=== PATIENT | male | born 1960 | race Caucasian/White ===

== ENCOUNTER 2016-11-10 11:43 | Emergency (ER) | payer OTHER ==
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
[~2016-11-10 11:43] MED LIST: ACETAMINOPHEN PO; AL-MAG HYDROX-S30 M1 PO; ARISTOCORT A 0.15 GM TOP; ATARAX PO; ATIVAN PO; BENTYL10 MG PO; CENTRUM SILVER PO; FOLIC ACID1 MG PO; IMODIUM2 MG PO; K-DUR20 ME1 PO; NORCO 10-325 TA1 TAB PO; PHENERGAN SUPP25 MG PR; PHENERGAN25 MG PO; PHENERGAN25 MG/1 ML IM; THIAMINE HCL100 MG PO; XARELTO10 MG PO; ZYPREXA7.5 MG PO
[2016-11-10 13:34] LABS: URINE SOURCE CLEAN CATCH
[2016-11-10 13:48] LABS: URINE APPEARANCE CLEAR; URINE BILIRUBIN NEG (NEG); URINE BLOOD NEG (NEG); URINE COLOR YELLOW; URINE GLUCOSE NEG (NEG); URINE KETONE NEG (NEG); URINE LEUKOCYTE ESTERASE NEG (NEG); URINE NITRATE NEG (NEG); URINE PROTEIN 1+ (NEG); URINE SPECIFIC GRAVITY 1.014 (1.003-1.035); URINE UROBILINOGEN 0.2 MG/DL (NEG)
[2016-11-10 13:49] LABS: URBCS1 AUWI 0-2 /[HPF] (0-2); URINE BACTERIA AUWI NEG (NEGATIVE); URINE SQUAMOUS EPITHELIAL CELL NONE SEEN /[HPF]; UWBCS1 AUWI 0-2 (0-5)
[2016-11-10 13:50] LABS: BASOPHIL# 0.1 X10e3 (0-0.3); BASOPHIL% 0.6 % (0-2.5); EOSINOPHIL# 0.2 X10e3 (0-0.7); EOSINOPHIL% 1.8 % (0.0-7.0); HEMATOCRIT 47.4 % (38.0-50.0); LYMPHOCYTE# 2.1 X10e3 (1.0-3.5); LYMPHOCYTE% 16.6 % (17.0-45.0); MEAN CELL VOLUME 98.8 FL (83-96); MEAN CORPUSCULAR HEMOGLOBIN 33.3 PG (28-34); MEAN CORPUSCULAR HGB CONC 33.7 g/dL (30-36); MEAN PLATELET VOLUME 7.8 FL (6.5-11.5); MONOCYTE# 0.7 X10e3 (0-1.0); MONOCYTE% 5.4 % (3.0-12.0); NEUTROPHIL# 9.5 X10e3 (1.5-7.1); NEUTROPHIL% 75.6 % (40-75); PLATELET COUNT 241 X10e3 (140-420); RED CELL DISTRIBUTION WIDTH 13.8 % (11.0-15.5); WHITE BLOOD COUNT 12.6 X10e3 (4.0-10.5)
[2016-11-10 13:53] LABS: DIFF IND NO
[2016-11-10 13:59] LABS: CULTURE INDICATED? NO
== END 2016-11-10 14:41 | disposition home or self-care (01) ==
LOC: CFTX 11:43
PROVIDERS: Nurse Practitioner Family
DX: S73.101A Unspecified sprain of right hip, initial encounter (principal); F17.210 Nicotine dependence, cigarettes, uncomplicated; X58.XXXA Exposure to other specified factors, initial encounter; Y92.9 Unspecified place or not applicable
CPT/HCPCS: 36415; 73502; 81003; 85025; 99283

== ENCOUNTER 2017-04-01 09:42 | Inpatient (IN) | payer OTHER ==
[~2017-04-01] VITALS: Ht 177.8 cm; Wt 60.6 kg
--- NOTE | ~2017-04-01 | CO ---
Unit #: [id number] #: [id number] Patient: BENNY FARIA [id number] [address] [place], [place] [address] [id number] Renuka MR#: [id number] NAME: BENNY FARIA ROOM: 324 Age: 56 Sex: M Admission Date: 04/01/2017 : 1960 Attending Physician: Nallely Prieto M.D. Primary Care Physician: No Primary Care Physician Consultation Date: 04/01/2017 CONSULTATION REPORT REASON FOR CONSULT Acidosis. Thank you very much for having me see this patient in consultation. HISTORY OF PRESENT ILLNESS Mr. Faria is a 56-year-old, male who apparently lives alone who has a history of ETOH abuse with cirrhosis and hepatitis, although apparently has not had any alcohol in 2 years. He presented to the hospital with decreased mental status and apparently about an 80-pound weight loss. Was admitted and noted to have a bicarb of 10 in the serum with an anion gap of 24 with creatinine 1.1. Because of this, I was asked to see the patient. Patient apparently had a methanol and ethylene glycol level sent to [facility], but they accidentally ran an acetone level, which came back at 85 according to the lab, although the methanol level was negative and, after approximately 20 minutes of trying to get a hold of and talk to them in the lab at [facility], they finally instructed me that the ethylene glycol machine was broken and probably would not be fixed tonight. Because of his severe acidosis, I was asked to see the patient. Patient currently is alert, but confused. PAST MEDICAL HISTORY History of schizophrenia, history of cirrhosis, history of hepatitis C, history of ETOH abuse and none in questionable two years, history of anxiety, history of depression. Apparently, he was in the hospital two months ago with sepsis and pneumonia at [place]. SOCIAL HISTORY Apparently, no alcohol x2 years. Lives along. Positive smoker. ALLERGIES No known drug allergies. MEDICATIONS Medicines at home included: 1. Eyedrops. 2. Pravachol 20 mg at night. 3. Melatonin 3 mg at night. 4. Sertraline 20 mg at night. 5. Quetiapine fumarate 200 mg at night. 6. SEROquel 400 mg at night. REVIEW OF SYSTEMS Again, he was talking about being bitten by a snake two days ago and Unit #: [id number] #: [id number] Patient: BENNY FARIA things over in the room so really cannot get a good review of systems from him. He currently denies any chest pain, shortness of breath, nausea, or vomiting. He denies any type of ingestions of any antifreeze or rubbing alcohol or any type of alcohols. FAMILY HISTORY Unable to obtain. PHYSICAL EXAMINATION GENERAL: He is alert, but confused. HEENT: His pupils are equal, round, and reactive to light. Extraocular muscles are intact. Hearing appears to be normal. Mouth is dry. No erythema. No exudate. NECK: Supple. No adenopathy. CARDIAC: He does have a regular rhythm without a rub. No S3 or S4. LUNGS: His lungs are fairly clear bilaterally, although he does have some decreased breath sounds at the bases. ABDOMEN: Bowel sounds positive. Nontender and soft. EXTREMITIES: He has no lower extremity swelling. His pulses are intact in the lower extremities. JOINTS: No joint pain or joint swelling. SKIN: No acute rashes. NEURO: Again, able to move all extremities. He is alert, but confused. : Chiu catheter is now in place. DIAGNOSTIC STUDIES LABORATORY DATE: Initially, he had a sodium of 137, potassium 3, chloride is 103, bicarb is 10, BUN of 8, creatinine 1.1, glucose 71, and anion gap was 24. Hemoglobin is 12.7, white count 7,900, and platelets 298,000. INR is 1.6. UA shows specific gravity of 1.02, 1+ protein, 3+ ketones, 2-5 RBCs, and 1+ bacteria. Serum osmolarity was 312. His repeat labs showed a BUN and creatinine of 9 and 1, bicarb of 11, potassium was down to 2.7, and albumin was 4.2. CPK of 52. Ammonia level 64. TSH is 0.18. Clarinda level was 0.4. Lactic acid was 0.8. Tylenol level was negative. Aspirin level negative. Ethanol level was negative. His ABG showed pH of 7.208, pCO2 of 24, and pO2 questionable 43 venous gas, but he saturates to 100% apparently. IMAGING: CT scan of his head was negative. ASSESSMENT AND PLAN 1. Acidosis. This is a gentleman who has an elevated metabolic acidosis certainly with increased anion gap and certainly lactic level was negative. I do not have a serum ketone level. He does have urine ketones that are positive. He is not uremic. The real question is did he have ingestions of any types of alcohols. He has a calculated osmolar gap of 26 as well. His acetone level is 85 suggesting an isopropyl alcohol ingestion although that typically does not cause an elevated anion gap metabolic acidosis, but it can cause an elevated osmolar gap. Theoretically, he could have starvation ketosis as well with an elevated anion gap acidosis and isopropyl alcohol ingestion with an elevated osmolar gap; but, again, I do not have an ethylene glycol level and apparently I cannot get any in the near future. He does have normal renal function and he is urinating so we will keep him on his bicarb drip and will treat him for now only on fomepizole and will try to get levels once the machine gets fixed at [facility]. Continue bicarb drip. Will continue to follow. Check serum ketones. 2. Severe hypokalemia. Will replace with protocols. Unit #: [id number] #: [id number] Patient: BENNY FARIA 3. Possible urinary tract infection. Will start on Rocephin. 4. History of cirrhosis/hepatitis C with elevated ammonia. Dictated by.Orlando Messer M.D. ALIZA/mary TD: 04/02/2017 09:43 JOB #: [id number] CONSULTATION REPORT Page 1 of 1 X Nallely Messer MD X CONSULTATION REPORT
--- NOTE | ~2017-04-01 | HP ---
Unit #: [id number] #: [id number] Patient: BENNY FARIA [id number] [facility]. [place], [place] [address] [id number] MR#: [id number] NAME: BENNY FARIA ROOM: Age: 56 Sex: M Admission Date: 04/01/2017 : 1960 Attending Physician: Isidro Rodriguez M.D. Primary Care Physician: No Primary Care Physician HISTORY AND PHYSICAL CHIEF COMPLAINT Weakness. HPI The patient is a 56-year-old male with past medical history of schizophrenia, anxiety, depression, hypothyroidism, and alcohol abuse who presented to the emergency department for evaluation of the above. The patient is a poor historian. He has had increasing generalized weakness and weight loss. He has reportedly had about an 80-pound weight loss since August. He has had decreased p.o. intake. He denies any vomiting or diarrhea. No cough or cold symptoms. In the emergency department, initial pulse and blood pressure were 86 and 139/83, respectively. Laboratory notable for ammonia level of 64. He was given 45 mL of lactulose in the emergency department. Potassium was also low and he received 40 mEq of potassium as well as 4 mg of Zofran and 1 liter of normal saline. He is being admitted to [facility] for evaluation and further treatment. PAST MEDICAL HISTORY 1. Admission to [facility] within the past year (no records). 2. Admission to [facility] February 21, 2012, for a left hip fracture. He underwent nailing during that admission. 3. Schizophrenia. 4. Anxiety/depression. 5. Hypothyroidism. PAST SURGICAL HISTORY Left hip surgery. SOCIAL HISTORY The patient has a history of alcohol abuse. He tells me that his last drink was two years ago. He is a smoker. ALLERGIES No known allergies. HOME MEDICATIONS 1. Olanzapine 10 mg at bedtime. 2. Vitamin D3 1000 units daily. 3. Artane 1 mg twice daily p.r.n. 4. [facility] 300 mg twice daily. 5. Levothyroxine 100 mcg daily. Unit #: [id number] #: [id number] Patient: BENNY FARIA 6. SEROquel 600 mg at bedtime. 7. Sertraline 200 mg at bedtime p.r.n. 8. Melatonin 3 mg at bedtime. 9. Pravachol 20 mg at bedtime. 10. Fidelity 3 1200 mg daily. 11. Ketoralac eyedrops 4 times daily p.r.n. REVIEW OF SYSTEMS A complete review of systems is somewhat limited due to the patient's altered mental status, but negative, except as indicated in the HPI. DIAGNOSTIC STUDIES CARDIOVASCULAR: EKG shows normal sinus rhythm with a rate of 74 beats per minute. There is T wave inversion in leads V2 through V6. IMAGING: Chest x-ray shows no acute abnormality. CT of the head shows nothing acute. LABORATORY: Complete blood count notable for hemoglobin and hematocrit of 12.7 and 39.3, respectively. Troponin is less than 0.05. INR is 1.6. Comprehensive metabolic panel notable for potassium of 3, CO2 is 10 with an anion gap of 24. Ammonia level 64. PHYSICAL EXAMINATION VITAL SIGNS: Temperature 98.1, pulse 86, respirations 18, blood pressure 139/83, and oxygen saturation 100% on room air. GENERAL: The patient is a male who is awake and alert. Chronically ill appearing. HEENT: The head is atraumatic. Mucous membranes are dry. NECK: Supple. Trachea is midline. CARDIOVASCULAR: Regular rate and rhythm. LUNGS: Clear to auscultation bilaterally with no increased work of breathing. ABDOMEN: Soft and nontender with bowel sounds present in all four quadrants. EXTREMITIES: Nontender with no pedal edema. NEUROLOGIC: The patient is oriented to person only. He follows commands. He is moving all extremities. PSYCH: The patient has a flat affect. He is cooperative. SKIN: Skin of examined areas is warm and dry. ASSESSMENT The patient is a 56-year-old male with: 1. Generalized weakness. 2. Hepatic encephalopathy with an initial ammonia level of 64. 3. Hypokalemia. The patient received 40 mEq of potassium in the emergency department. 4. Anion gap metabolic acidosis with an anion gap of 24. 5. Weight loss, possibly 80 pounds since August. 6. Schizophrenia. 7. Anxiety/depression. 8. Hypothyroidism. 9. Alcohol abuse. The patient's last drink was reportedly two years ago. PLAN 1. Admit to intermediate level for observation. 2. Advance to regular diet if passes bedside swallow. Unit #: [id number] #: [id number] Patient: BENNY FARIA 3. Lactulose 30 mL p.o. q.4 hours. 4. Neuro checks. 5. Multivitamin, folic acid, and thiamine. 6. CIWA scoring. 7. Check magnesium level. 8. Potassium magnesium protocol. 9. TSH. 10. PT to evaluate and treat. 11. Bed rest. 12. Fall precautions. 13. Get records from [place]. 14. Serial cardiac enzymes. 15. Bicarb drip to start now. 16. Repeat BMP later this afternoon to follow up anion gap metabolic acidosis. 17. Check urinalysis and urine tox screen. 18. SCDs for DVT prophylaxis. 19. Additional workup and consultants based on above. Dictated by Tray Harris/mary TD: 04/01/2017 13:58 JOB #: [id number] HISTORY AND PHYSICAL Page 1 of 1 X Pallavi Matamoros MD X HISTORY AND PHYSICAL
--- NOTE | ~2017-04-01 | CO ---
Unit #: [id number] #: [id number] Patient: BENNY INFANTE [id number] [facility] [address] [facility]. [place], [place] [address] [id number] I MR#: [id number] NAME: BENNY INFANTE ROOM: 324 Age: 56 Sex: M Admission Date: 04/01/2017 : 1960 Attending Physician: Nallely Priteo M.D. Primary Care Physician: Primary Care Physician No Consultation Date: 04/09/2017 CONSULTATION REPORT REASON FOR CONSULTATION Followup. DISCUSSION Mr. Benny Infante is a 56-year-old male, seen in room 324, bed 1, on 04/09/2017 at [facility]. The patient was sitting in a chair, eating his lunch. The patient dressed in hospital attire, able to answer questions appropriately. More coherent and cooperative. No agitation, but mood lability. The patient denied any thoughts of harming self or others. Denied any hallucination, but somewhat guarded and paranoid. Reports that he would like to go home. The patient's vital signs; temperature 98.3, pulse 74, respirations 16, blood pressure 110/74, oxygen saturation 98%. REVIEW OF SYSTEMS Complete review of systems unremarkable. MENTAL STATUS EXAMINATION General appearance, the patient dressed casually in hospital attire. Attention span and concentration, fair. Speech, rapid in rate and somewhat pressured. Oriented in time, place, and person. Mood and affect, labile. Thought process, circumstantial. Thought content, guarded, paranoid, but denied any thoughts of harming self or others. Recent and remote memory, fair to slightly impaired. Language, intact. Fund of knowledge, fair. Insight and judgment, fair to slightly impaired. DIAGNOSIS Psychiatric: Schizophrenia, chronic paranoid type, F20.0. ASSESSMENT AND PLAN 1. Supportive psychotherapy and psychoeducation provided to the patient. 2. Educated about benefits and side effects of medication and course and prognosis of illness. 3. Advised to continue with current medication. If needed, consider further adjustment of medication. We will continue to follow. Please feel free to call if any questions, telephone #[phone]. Dictated by... Miguel Willett M.D. CARISA/gina TD: 04/13/2017 00:19 Unit #: [id number] #: [id number] Patient: BENNY INFANTE JOB #: [id number] CONSULTATION REPORT Page 1 of 1 X Miguel Willett MD CONSULTATION REPORT
--- NOTE | ~2017-04-01 | CO ---
Unit #: [id number] #: [id number] Patient: BENNY FARIA [id number] [facility] [address] [facility]. [place], [place] [address] [id number] I MR#: [id number] NAME: BENNY FARIA ROOM: 324 Age: 56 Sex: M Admission Date: 04/01/2017 : 1960 Attending Physician: Nallely Prieto M.D. Consultation Date: 04/07/2017 CONSULTATION REPORT REASON FOR CONSULTATION Followup. DISCUSSION Mr. Benny Faria is a 56-year-old white male seen in room 324, bed 1, on April 07, 2017, at [facility]. Patient was lying in bed dressed in hospital attire. He seemed somewhat anxious and wanted to go home and live in his apartment. Patient's brother and his day care aide was at the bedside. Patient's field nurse case manager is concerned that patient is not able to manage himself and needs a higher level of care. Patient has a good support system. He denied any thoughts of harming self or others but somewhat anxious. Patient was somewhat guarded and paranoid but denied any current auditory hallucinations. I noticed tardive dyskinesia symptoms. Patient's vital signs: Temperature 98.2, pulse 67, respirations 20, blood pressure 119/83, and oxygen saturation 100%. REVIEW OF SYSTEMS A complete review of systems is unremarkable except as mentioned above. MENTAL STATUS EXAMINATION General appearance: Patient is thin built and dressed in hospital attire. He seemed somewhat anxious, and I noticed abnormal movement of face. Attention span and concentration were poor. Speech was rapid in rate and difficult to understand at times. Oriented in time, place, and person. Mood and affect labile. Thought process circumstantial. Thought content guarded and paranoid but denied any suicidal or homicidal ideation. Recent and remote memory fair. Language intact. Fund of knowledge fair. Insight and judgment fair to slightly impaired. PSYCHIATRIC DIAGNOSIS Schizophrenia, chronic, paranoid type, F20.0. ASSESSMENT AND PLAN 1. Supportive psychotherapy and psychoeducation provided to the patient. 2. Educated about benefits and side effects of medication and course and prognosis of illness. 3. Encouraged to continue with current medication. Patient seems to be doing better on a lower dosage of Seroquel. We will closely monitor for any psychotic symptoms. Patient is currently on Seroquel XR 200 mg twice daily. Patient wants to live by himself supervised by day care aide. We will discuss with the day care aide and family service caseworker. In the meantime, continue with current medication and make further adjustment of medication if needed. Patient to continue with Artane, Zyprexa, and Seroquel. Please feel free to call with any questions Unit #: [id number] #: [id number] Patient: BENNY FARIA at telephone number [phone]. 1. Dictated by... Tray Adams/pete TD: 04/08/2017 17:09 JOB #: [id number] CONSULTATION REPORT Page 1 of 1 X Miguel Willett MD X CONSULTATION REPORT
--- NOTE | ~2017-04-01 | CT71 ---
[facility] A Service of [facility] RADIOLOGY TEXT RESULTS PATIENT: BENNY FARIA [facility] 324-01 : 58 UNIT #: [id number] AGE: [address]: Pallavi Matamoros MD SEX: M ORDER DR: [id number] [facility]. [place], [place] [address] [id number] E MR#: [id number] #: [id number] NAME: BENNY FARIA : 1960 SEX: M STUDY DATE/TIME: 04/01/2017 11:02 UNIT: [facility] ROOM: STUDY DESCRIPTION: CT Head Wo Contrast Attending Physician: Isidro Rodriguez M.D. Ordering Physician: Isidro Rodriguez M.D. Primary Care Physician: Primary Care Physician No MEDICAL IMAGING REPORT This report is preliminary unless electronic signature is present EXAM CT head without contrast. INDICATIONS Weakness, confusion for [address] images were obtained from vertex of the skull through skull base and intravenous contrast material was administered. This CT exam was performed with one or more of the following radiation dose reduction techniques: automatic exposure control, adjustment of mA and/or kV according to patient size, and iterative reconstruction. FINDINGS No acute intracranial hemorrhage is identified. Brain parenchyma is normal attenuation without focal areas of decreased in seen. There is no midline shift or mass effect. The visualized paranasal sinuses and mastoid air cells appear clear. No aggressive osseous abnormalities are seen and there are no focal soft tissue abnormalities. IMPRESSION Negative Dictated by... Annabella Gonzales M.D. THIS IS AN ELECTRONICALLY VERIFIED REPORT Annabella Gonzales M.D. at 04/01/2017 4:50 PM AFF/dj TD: 04/01/2017 12:58 JOB #: [id number] [facility] A Service [facility] RADIOLOGY TEXT RESULTS PATIENT: BENNY FARIA [facility] 324-01 : 58 UNIT #: [id number] AGE: [address]: Pallavi Matamoros MD SEX: M ORDER DR: MEDICAL IMAGING REPORT Page 1 of 1 COPY
--- NOTE | ~2017-04-01 | EKG ---
PATIENT: BENNY FARIA UNIT #: [id number] Ventricular Rate: 74 BPM Atrial Rate: 74 BPM P-R Interval: 152 ms QRS Duration: 84 ms Q-T Interval: 548 ms QTC Calculation(Bezet): 608 ms P [place]: 66 degrees Calculated R [place]: 48 degrees Calculated T [place]: 74 degrees Diagnosis Line: Normal sinus rhythm Diagnosis Line: ST and T wave abnormality, consider anterior Diagnosis Line: ischemia Diagnosis Line: Prolonged QT Diagnosis Line: Abnormal ECG Diagnosis Line: When compared with ECG of 08-JAN-2013 13:12, Diagnosis Line: ST now depressed in Anterior leads Diagnosis Line: Nonspecific T wave abnormality now evident in Diagnosis Line: Inferior leads Diagnosis Line: T wave inversion now evident in Anterior leads Diagnosis Line: QT has lengthened Diagnosis Line: Confirmed by CA BARRETO MD ([id number]) on 04/01/2017 Diagnosis Line: 7:45:34 PM INTERPRETING MD: ESTEVAN LARSON
--- NOTE | ~2017-04-01 | FU ---
[facility] Nutrition Therapy DATE: 04/06/17 Patient: BENNY FARIA Physician: ASHA Address: [address] [place] [address] Room/Bed: [address] [place] [address], Zip: [place] [address] Admit Date: 04/01/17 Date of : 58 Height: 5 10 Weight: 132 60.2 NUTRITION MONITORING/FOLLOW-UP: Reason: NUTRTION F/U FOR LOW BMI Anthropometrics: HT: 70", WT: 132#, BMI: 18.9 Labs: 04/06/17- GLU: 117, BUN: <5, CREA: 0.5, ALB: 3.3 Meds: LACTULOSE, SODIUM BICARB, SEROQUEL, MAG SULFATE, KCL, SYNTHROID, ZYPREXA, NACL, FOLIC ACID, FISH OIL, VIT D, MVI +MINS, THIAMIN I&O's: 1270/1700 Skin: INTACT Estimated Nutrition Needs: INCREASED 2' PATIENT UNDERWEIGHT, ~40# WEIGHT LOSS PER PATIENT Assessment: PATIENT IS A 56 Y/O MALE ADMITTED FOR WEAKNESS.HE IS BEING SEEN FOR HIS UNDERWEIGHT STATUS. PATIENT HAS BEEN NOTED TO HAVE CONFUSION, DISORIENTATION, PARANOIA, AND DELUSIONS. HE HAS A POOR MEMORY. UPON VISIT PATIENT WAS ALERT AND PLEASANT. HE WAS ABLE TO ANSWER QUESTIONS APPROPRIATELY, HOWEVER HE WAS MUMBLING NONSENSE AND WAS PREOCCUPIED WITH MAKING A PHONE CALL. WASN HE STATED THAT HIS UBW IS 170# BUT THAT HIS WEIGHT USUALLY FLUCTUATES D/T HIS MEDICATIONS. WEIGHT HX PER [facility] SHOWS A 30# WEIGHT LOSS SINCE OCTOBER (5 MONTHS). HE DENIES ANY N/V/D/C. THERE ARE NO SKIN OR GI ISSUES NOTED ATT. PATIENT IS ON A MECHANICAL GROUND DIET. PATIENT STATED HE COULD NOT TOLERATED ENSURE, BUT WAS WILLING TO TRY ENSURE CLEAR. Dx: UNDERWEIGHT R/T DECREASED PO INTAKE AND APPETITE, CURRENT DX, PMH? AEB LOW BMI, 77-80% IBW, ?~80# WEIGHT LOSS SINCE AUGUST 2016 - IMPROVING. WEIGHT LOSS ~30# X 5 MONTHS PER MEDITECH. Intervention: MECHANICAL GROUND DIET, RD CONSULT, SUPPLEMENTATION Monitoring, Evaluation and Goals: 1. ORAL INTAKE; CONSUME/TOLERATED >50% OF MEALS - ONGOING 2. WEIGHTS; PROMOTE GRADUAL WEIGHT GAIN TOWARDS HEALTHY BMI; PREVENT FURTHER UNINTENTIONAL WEIGHT LOSS - ONGOING. PATIENT'S WT SEEMS TO HAVE STABILIZED SINCE ADMIT 3. LABS; LYTES - IMPROVING - LYTES WNL, BUN AND CREA DECREASED MONITOR: PO INTAKE/APPETITE, WEIGHTS, LABS [facility] Nutrition Therapy DATE: 04/06/17 Patient: BENNY BLOODGOMERY Physician: ASHA Address: [address] [place] [address] Room/Bed: [address] [place] [address], Zip: [place] [address] Admit Date: 04/01/17 Date of : 58 Height: 5 10 Weight: 132 60.2 Recommendations: 1. WILL ORDER APPLE ENSURE CLEAR TID 2. CONTINUE MECHANICAL GROUND DIET PER GRINDING SUPERVISOR RECOMMENDATIONS 3. ENCOURAGE ADEQUATE PO AND FLUID INTAKES. PATIENT UNDERWEIGHT. POSSIBLY ADD AN APPETITE STIMULANT TO CURRENT MEDICATION REGIMEN 4. PLEASE WEIGH PATIENT Q 3 DAYS FOR MONITORING PURPOSES RD WILL F/U PER PROTOCOL AND PRN R/T PATIENT MILD/MODERATELY COMPROMISED Status: Respectfully, LUZ PENDLETON, RD, LD Food and Nutritional Services [facility] cc: client file
--- NOTE | ~2017-04-01 | A ---
[facility] Nutrition Therapy DATE: 04/02/17 Patient: BENNY FARIA Physician: ASHA Address: [address] Room/Bed: [address] [place] [address], Zip: [place] [address] Admit Date: 04/01/17 Date of : 58 Height: 5 10 Weight: 128 58.2 NUTRITIONAL ASSESSMENT: REASON: LOW BMI + CONSULT RE: WEIGHT LOSS PT IS 56 Y.O. MALE ADMITTED FOR WEAKNESS PMH: ANXIETY, DEPRESSION, SCHIZOPHRENIA, ETOH ABUSE, CIRRHOSIS, HEPATITIS, HYPOTHYROIDISM Anthropometrics: 5'10", WT: 128-133# (58 KG-60 KG), BMI: 18.4-19.1, 77%IBW-80%IBW Labs: K+:3.1, GLU: 113, BUN: 7, PHOS: 0.8 Meds: NACL, LIPITOR, KCL, LACTULOSE, FOLIC ACID, FISH OIL, VITAMIN D, THIAMINE, SYNTHROID, THERAPEUTIC FORMULA I/O & Bowel function: 1890/1100 Skin Integrity: NO KNOWN SKIN ISSUES Estimated Nutrition Needs: INCREASED NEEDS 2' PT UNDERWEIGHT, CURRENT CONDITION, WEIGHT LOSS NOTED? Assessment: CHART REVIEWED AND EVENTS NOTED. PT SEEN FOR UNDERWEIGHT + WEIGHT LOSS NOTED. PT ASLEEP AT TIME OF VISIT. BOTH RD AND MD ATTEMPTED TO WAKE PT AT SAME TIME. PT DID NOT WAKE TO VERBAL CUES. PER RN AND CHART, PT NOTED TO HAVE DECREASED PO INTAKE, NOTING ~80# WEIGHT LOSS SINCE AUGUST 2016?. OF NOTE, K+ AND PHOS LOW. RD TO FOLLOW ONCE PT AWAKE/ALERT/ORIENTED. Dx: UNDERWEIGHT R/T DECREASED PO INTAKE AND APPETITE, CURRENT DX, PMH? AEB LOW BMI OF 18.4-19.1, 77-80%IBW, ?~80# WEIGHT LOSS SINCE AUGUST 2016. Intervention: 1. MECHANICAL GROUND DIET 2. RD CONSULT Monitoring, Evaluation and Goals: 1. ORAL INTAKE; CONSUME/TOLERATE >50% OF MEALS 2. WEIGHTS; PROMOTE GRADUAL WEIGHT GAIN TOWARDS HEALTHY BMI; PREVENT FURTHER UNINTENTIONAL WEIGHT LOSS 3. LABS; LYTES MONITOR: -PO INTAKE/APPETITE -WEIGHTS [facility] Nutrition Therapy DATE: 04/02/17 Patient: BENNY FARIA Physician: ASHA Address: [address] Room/Bed: [address] [place] [address], Zip: [place] [address] Admit Date: 04/01/17 Date of : 58 Height: 5 10 Weight: 128 58.2 -LABS Recommendations: 1. PLEASE REPLETE LYTES PRN (K+ & PHOS LOW) 2. RECOMMEND TO ORDER APPROPRIATE SUPPLEMENTS (ENSURE CLEAR, ENSURE ENLIVE, ENSURE PUDDING, MAGIC CUP TID) FOR ADDITIONAL PROTEIN AND KCAL 3. APPRECIATE FAMILY AND STAFF TO ENCOURAGE ADEQUATE PO INTAKE, PT CLINICALLY UNDERWEIGHT 4. PLEASE WEIGH PT q 3 DAYS FOR MONITORING PURPOSES RD WILL F/U PER PROTOCOL PT IS MODERATELY COMPROMISED Respectfully, VENKAT MONTANA MS, RD, LD [facility] cc: client file
--- NOTE | ~2017-04-01 | CO ---
Unit #: [id number] #: [id number] Patient: BENNY INFANTE [id number] [address] [place], [place] [address] [id number] I MR#: [id number] NAME: BENNY INFANTE ROOM: 324 Age: 56 Sex: M Admission Date: 04/01/2017 : 1960 Attending Physician: Nallely Prieto M.D. Consultation Date: 04/05/2017 CONSULTATION REPORT REASON FOR CONSULTATION Followup. DISCUSSION Mr. Benny Infante is a 56-year-old white male, seen in room 324, bed 1 on 04/05/2017. The patient dressed casually in hospital attire, lying comfortably in bed. The patient was slow to respond to the questions, but coherent answers, somewhat guarded, paranoid, mood lability, but denied any thoughts of harming self or others. The patient's information obtained from the nursing staff and chart reviewed. Vital signs; temperature 99.3, pulse 83, respirations 16, blood pressure 114/72, and oxygen saturation 99%. REVIEW OF SYSTEMS A complete review of systems is unremarkable except as mentioned above. MENTAL STATUS EXAMINATION General appearance; the patient dressed in hospital attire, lying comfortably in bed. Attention span and concentration, poor. Speech, slow. Orientation in self. Mood and affect, flat. Thought process, circumstantial. Thought content; guarded and paranoid, but denied any thoughts of harming self or others. Recent and remote memory, poor. Language, fair. Fund of knowledge, impaired. Insight and judgment, impaired. DIAGNOSIS Psychiatric: Schizophrenia, chronic, paranoid type, F20.0. ASSESSMENT/PLAN 1. Supportive psychotherapy and psychoeducation provided to the patient. 2. Educated about benefits and side effects of medication and course and prognosis of illness. 3. Advised to continue with current medication combination, Seroquel XR 200 mg b.i.d. If needed, consider further adjustment of medication. Please feel free to call if any questions, telephone #[phone]. Dictated by... Miguel Willett M.D. CARISA/gina TD: 04/05/2017 18:03 JOB #: [id number] Unit #: [id number] #: [id number] Patient: BENNY INFANTE CONSULTATION REPORT Page 1 of 1 X Miguel Willett MD CONSULTATION REPORT
--- NOTE | ~2017-04-01 | CO ---
Unit #: [id number] #: [id number] Patient: BENNY FARIA 216102 [facility] [address] [facility]. [place], [place] [address] [id number] I MR#: [id number] NAME: BENNY FARIA ROOM: 324 Age: 56 Sex: M Admission Date: 04/01/2017 : 1960 Attending Physician: Nallely Prieto M.D. Primary Care Physician: Primary Care Physician No Consultation Date: 04/04/2017 CONSULTATION REPORT REASON FOR CONSULTATION Schizophrenia, disorganized behavior and thought process. HISTORY OF PRESENT ILLNESS Mr. Faria is a 56-year-old white male, seen in room 324, bed 1 on 04/04/2017 at [facility]. The patient is thin built, dressed casually, lying comfortably in bed. The patient was unable to give any coherent information, disorganized behavior, disorganized thought process, guarded, paranoid. The patient's vital signs; temperature 98.7, heart rate 87, respirations 16, blood kwegeidy914/79, and oxygen saturation 95%. The patient has a longstanding history of schizophrenia and currently on olanzapine, Artane, lithium, Seroquel, sertraline, melatonin. The patient did not show any agitation, poor historian. The patient's vital signs; temperature 98.5, heart rate 76, respirations 16, blood pressure 117/76, and oxygen saturation 99%. PAST PSYCHIATRIC HISTORY Remarkable for history of schizophrenia with multiple treatment at [facility] and outpatient treatment. MEDICAL HISTORY Remarkable for history of hypothyroidism, history of hepatitis C, cirrhosis of liver, history of sepsis and pneumonia treated at [place] recently. MEDICATION HISTORY The patient is on Pravachol, melatonin, sertraline, quetiapine. ALLERGIES No known drug allergies. FAMILY HISTORY AND SOCIAL HISTORY The patient has a poor support system. No history of abuse. No known history of any substance abuse known at this time. REVIEW OF SYSTEMS Complete review of system is unremarkable except as mentioned above. MENTAL STATUS EXAMINATION Vitals signs, please see above. General appearance; the patient dressed casually, lying comfortably in bed, confused, unable to give any reliable information. Attention span and concentration, poor. Speech, slow and disorganized. Orientation in self. Mood and affect, labile. Thought process, circumstantial. Thought content, guarded and paranoid, but Unit #: [id number] #: [id number] Patient: BENNY FARIA denied any thoughts of harming self or others. Recent and remote memory, poor. Language, poor. Fund of knowledge, impaired. Insight and judgment, impaired. DIAGNOSES Psychiatric: Schizophrenia, chronic paranoid type, F20.0; rule out delirium, F05. Secondary diagnosis: Deferred. Medical diagnosis: Please refer to H and P. Stressors: Psychosocial stressors. ASSESSMENT AND PLAN 1. Supportive psychotherapy and psychoeducation provided to the patient, but the patient is unable to comprehend much. 2. Recommending at this time to continue with current medication combination. The patient is on Zyprexa 10 mg daily, Seroquel XR 200 mg b.i.d. If needed, consider further adjustment of medication. We will continue to follow. Please feel free to call if any questions, telephone #[phone]. Dictated by... Tray Adams/gina TD: 04/06/2017 01:22 JOB #: [id number] CONSULTATION REPORT Page 1 of 1 X Miguel Willett MD X CONSULTATION REPORT
--- NOTE | ~2017-04-01 | DS ---
Unit #: [id number] #: [id number] Patient: BENNY FARIA [id number] [address] [address] [id number] I MR#: [id number] NAME: BENNY FARIA ROOM: 324 Age: 56 Sex: M Admission Date: 04/01/2017 : 1960 Discharge Date: Attending Physician: Nallely Prieto M.D. Primary Care Physician: No Primary Care Physician DISCHARGE SUMMARY DISCHARGE DIAGNOSES 1. Severe metabolic acidosis, likely from severe ketosis with elevated serum acetone level, likely from starvation. 2. Cirrhosis. 3. Hepatic encephalopathy. 4. Change in mental status from toxic metabolic encephalopathy. 5. Hypophosphatemia. 6. Hypokalemia. 7. Severe schizophrenia with hallucinations during the hospitalization course. 8. Oropharyngeal dysphagia. 9. Hypermagnesemia. 10. Weight loss, needs outpatient followup. 11. Underweight. 12. Moderate calorie malnutrition. CONSULTATIONS 1. Dr. Willett. 2. Dr. Messer. PROCEDURE None. DIAGNOSTIC STUDIES LABORATORY: Potassium 4.1, magnesium 1.8. Ammonia 13. WBC 5.2, hemoglobin 10.4, platelets 134,000. (1) level not detected. Alcohol level not detected. Urine culture negative. Ethylene glycol not detected. Beta hydroxybutyrate level is 3.28. ABG: A pH 7.36, carbon dioxide 32, oxygen 96. Urine drug screen negative. Urinalysis: No infection. Serum osmolality 312. Troponins negative. Lactic acid 0.8. [place] level 0.4. IMAGING: CAT scan of the head negative. ALLERGIES None. DISCHARGE MEDICATIONS 1. Artane 1 mg p.o. b.i.d. p.r.n. 2. Seroquel 200 p.o. b.i.d. 3. Pravachol 20 daily. 4. Fish oil 1000 p.o. daily. 5. Multivitamin one tablet daily. 6. Acular 3 mL four times daily p.r.n. Unit #: [id number] #: [id number] Patient: BENNY FARIA 7. Zyprexa 10 mg daily. 8. Synthroid 100 mcg p.o. daily. 9. Folic acid 1 mg daily. 10. Thiamine 100 daily. 11. Vitamin D 1000 p.o. daily. HOSPITALIZATION COURSE This is a 56 year old admitted because of weakness. Severe metabolic acidosis with increased serum acetone level likely from starvation. Patient is seen by nephrology. Patient received IV fluids and IV bicarbonate, later changed to p.o. bicarbonate. Currently, acidosis is better. Patient is tolerating diet okay. Change in mental status, secondary to toxic metabolic encephalopathy, likely from his schizophrenia medications which have been tapered down a little bit. Patient is seen by Dr. Willett, told to continue the current Seroquel. Cirrhosis with hepatic encephalopathy with mildly elevated ammonia. Patient received lactulose. Currently, ammonia level is normal. Patient currently back to baseline. Alert and oriented, mildly confused. Severe schizophrenia: The patient is on multiple psychiatric medications. The patient is seen by Dr. Willett. He told to continue the current medications. Oropharyngeal dysphagia: The patient is seen by speech. Continue diet as per speech. I am going to recommend him to follow Dr. Ivan as an outpatient for followup later for oropharyngeal dysphagia. Severe multiple electrolyte imbalances: Replaced. PLAN Discussed with caregiver at [facility], Ms. Diggs. She is okay for the patient to be discharged home. Patient is ambulating fine. According to physical therapy, he does not need rehab. I discussed with Dr. Willett and Dr. Willett thinks that he does not meet for inpatient psychiatric stay, so I am going to discharge him home. Follow with family physician in one week time. Follow with Dr. Ivan for oropharyngeal dysphagia in two weeks' time. Follow with psychiatrist in one week time. Patient does need outpatient followup for his weight loss and malnutrition. Dictated by... Tray Mario TD: 04/08/2017 16:46 JOB #: [id number] Unit #: [id number] #: [id number] Patient: BENNY FARIA DISCHARGE SUMMARY Page 1 of 1 X Nallely Prieto MD X DISCHARGE SUMMARY
--- NOTE | ~2017-04-01 | CO ---
Unit #: [id number] #: [id number] Patient: BENNY FARIA [id number] [facility]. [place], [place] [address] [id number] I MR#: [id number] NAME: BENNY FARIA ROOM: 324 Age: 56 Sex: M Admission Date: 04/01/2017 : 1960 Attending Physician: Nallely Prieto M.D. Primary Care Physician: Primary Care Physician No Consultation Date: 04/08/2017 CONSULTATION REPORT REASON FOR CONSULTATION Followup. DISCUSSION Mr. Benny Faria is a 56-year-old male, seen in room 324, bed 1, on 04/08/2017 at [facility]. The patient was able to answer questions appropriately, noticed abnormal movement of face due to tardive dyskinesia. The patient reports that he would like to go home and does not want to lose his apartment. The patient was able to answer questions appropriately. Somewhat guarded and paranoid, but denied any thoughts of harming self or others. The patient denied any command hallucination, but paranoia. VITAL SIGNS Temperature 97.5, heart rate 71, respiratory rate 16, blood pressure 129/80, and oxygen saturation 99%. REVIEW OF SYSTEMS Complete review of systems is unremarkable except as mentioned above. MENTAL STATUS EXAMINATION General appearance; the patient thin built, dressed casually, lying comfortably in bed. Attention span and concentration, fair. Speech, regular rate and poor articulation. Oriented in time, place, and person. Mood and affect, labile. Thought process, circumstantial. Thought content; guarded and paranoid, but denied any thoughts of harming self or others. Recent and remote memory, fair. Language, fair. Fund of knowledge, fair. Insight and judgment, fair to slightly impaired. DIAGNOSIS Schizophrenia, chronic paranoid type, F20.0. ASSESSMENT/PLAN 1. Supportive psychotherapy and psychoeducation provided to the patient. 2. Educated about benefits and side effects of medication and course and prognosis of illness. 3. Advised to continue with current combination of Seroquel and Zyprexa. 4. Based on the current examination, the patient is able to make informed medical decision at this time and the patient wants to stay by himself in his apartment, does not want to go to any other placement. Recommending at this time to consider additional resources for the patient at home. Please feel free to call if any questions, telephone #[phone]. Unit #: [id number] #: [id number] Patient: BENNY FARIA Dictated by... Tray Adams/gina TD: 04/09/2017 16:38 JOB #: [id number] CONSULTATION REPORT Page 1 of 1 X Miguel Willett MD X CONSULTATION REPORT
--- NOTE | ~2017-04-01 | CO ---
Unit #: [id number] #: [id number] Patient: BENNY FARIA [id number] [facility]. [place], [place] [address] [id number] I MR#: [id number] NAME: BENNY FARIA ROOM: 324 Age: 56 Sex: M Admission Date: 04/01/2017 : 1960 Attending Physician: Nallely Prieto M.D. Primary Care Physician: Primary Care Physician No Consultation Date: 04/06/2017 CONSULTATION REPORT REASON FOR CONSULTATION Followup. DISCUSSION Mr. Benny Faria is a 56-year-old white male, seen in room 324 bed 1 on 04/06/2017 at [facility]. The patient diagnosed with schizophrenia. The patient was able to answer questions appropriately. Speech was spontaneous, but still disorganized, guarded, paranoid, but denied any thoughts of harming self or others or any psychotic symptom. According to the primary physician, the patient is needing help with feeding and having some concerns about the patient going home to live independently. The patient is still having some paranoia, but no suicidal or homicidal ideation. Speech is rambling, somewhat guarded, paranoid. The patient's vital signs; temperature 99.2, pulse 75, respirations 16, blood pressure 136/78, oxygen saturation 100%. MENTAL STATUS EXAMINATION General appearance; the patient thin built, dressed casually, lying comfortably in bed, seemed somewhat anxious. Attention span and concentration, poor. Speech, rambling and rapid. Oriented in self and place. Mood and affect, labile. Thought process, circumstantial. Thought content, guarded and paranoid. Recent and remote memory, poor. Language, fair. Fund of knowledge, fair to slightly impaired. Insight and judgment, fair to slightly impaired. DIAGNOSIS Schizophrenia, chronic paranoid type, F20.0. ASSESSMENT/PLAN 1. Supportive psychotherapy and psychoeducation provided to the patient. 2. Educated about benefits and side effects of medication and course and prognosis of illness. 3. Advised to continue with current medication. If needed, consider further adjustment of medication and discussed with the child care coordinator about safety about going home or looking for alternative placement. Dictated by... Miguel Willett M.D. CARISA/gina CURTIS: 04/06/2017 21:41 TD: 04/07/2017 06:28 JOB #: [id number] Unit #: [id number] #: [id number] Patient: BENNY FARIA CONSULTATION REPORT Page 1 of 1 X Miguel Willett MD CONSULTATION REPORT
--- NOTE | ~2017-04-01 | HP ---
Unit #: [id number] #: [id number] Patient: BENNY FARIA [id number] [address] [address] [id number] I MR#: [id number] NAME: BENNY FARIA ROOM: 324 Age: Sex: M Admission Date: 04/01/2017 : 1960 Attending Physician: Pallavi Matamoros M.D. Primary Care Physician: Primary Care Physician No HISTORY AND PHYSICAL ADDENDUM Additional historical information was obtained from the patient's peer ground support equipment fitter from [facility]. The patient was hospitalized two months ago at [facility], where he required dialysis and intubation. He also has cirrhosis secondary to hepatitis C and alcohol abuse. The peer education courses sales representative states that he has not been drinking alcohol for the past two years. He has apparently been generally weak and not eating since returning home from [facility]. The patient apparently lives alone. However, his brother is in an apartment upstairs. They both have mental illness. As stated in the history and physical, the patient does have anion gap metabolic acidosis. Please see orders for additional orders that were done at the time of admission for further evaluation of this issue. Dictated by Tray Harris/kayode TD: 04/01/2017 15:39 JOB #: [id number] HISTORY AND PHYSICAL Page 1 of 1 X Pallavi Matamoros MD X HISTORY AND PHYSICAL
[2017-04-01] MEDS ORDERED: OLANZAPINE10 MG PO (09:55)
[2017-04-01] MEDS ORDERED: ARTANE2 M1 PO (09:56)
[2017-04-01] MEDS ORDERED: VITAMIN D31000 UNIT PO (09:56)
[2017-04-01] MEDS ORDERED: LITHIUM CARBON300 M2 PO (09:56)
[2017-04-01] MEDS ORDERED: SEROQUEL400 MG PO (09:57)
[2017-04-01] MEDS ORDERED: LEVOTHYROXINE100 MC1 PO (09:57)
[2017-04-01] MEDS ORDERED: QUETIAPINE FUM200 M1 PO (09:58)
[2017-04-01] MEDS ORDERED: SERTRALINE HCL100 M1 PO (09:59)
[2017-04-01] MEDS ORDERED: MELATIN3 MG PO (09:59)
[2017-04-01] MEDS ORDERED: PRAVACHOL20 MG PO (09:59)
[2017-04-01] MEDS ORDERED: OMEGA 3 1,0001 EACH PO (10:00)
[2017-04-01] MEDS ORDERED: ACULAR LS5 ML OU (10:00)
[2017-04-01 10:17] LABS: BASOPHIL# 0.1 X10e3 (0-0.3); BASOPHIL% 0.9 % (0-2.5); EOSINOPHIL# 0.1 X10e3 (0-0.7); HEMATOCRIT 39.3 % (38.0-50.0); HEMOGLOBIN 12.7 gm/dL (13.0-16.0); LYMPHOCYTE# 1.9 X10e3 (1.0-3.5); LYMPHOCYTE% 23.4 % (17.0-45.0); MEAN CELL VOLUME 98.9 FL (83-96); MEAN CORPUSCULAR HGB CONC 32.4 g/dL (30-36); MONOCYTE# 0.6 X10e3 (0-1.0); MONOCYTE% 7.5 % (3.0-12.0); NEUTROPHIL# 5.3 X10e3 (1.5-7.1); NEUTROPHIL% 67.2 % (40-75); PLATELET COUNT 298 X10e3 (140-420); RED BLOOD COUNT 3.97 X10e (3.90-5.60); RED CELL DISTRIBUTION WIDTH 19.3 % (11.0-15.5); WHITE BLOOD COUNT 7.9 X10e3 (4.0-10.5)
[2017-04-01 10:19] LABS: DIFF IND NO
[2017-04-01 10:26] LABS: POC - CKMB 3.1 ng/mL (0.0-7.9); POC - TROPONIN <0.05 ng/mL (<=0.05)
[2017-04-01 10:35] LABS: INR 1.6; PARTIAL THROMBOPLASTIN TIME 30.6 SECONDS (23.5-31.3); PROTHROMBIN TIME (PATIENT) 17.6 SECONDS (10.0-11.7)
[2017-04-01 11:12] LABS: ALBUMIN SERUM 4.2 g/dL (3.5-5.0); BILIRUBIN, DIRECT 0.2 mg/dL (0.0-0.2); BILIRUBIN,INDIRECT 1.2 mg/dL (0.0-0.9); BILIRUBIN,TOTAL 1.4 mg/dL (0.2-2.0); BUN/CREATININE RATIO 7.27; CALCIUM SERUM 9.8 mg/dL (8.4-10.2); CREATININE SERUM 1.1 mg/dL (0.6-1.4); GLOM FILT RATE Estimated 74.1 mL/min (>60); PROTEIN TOTAL SERUM 7.5 g/dL (6.0-8.3)
[2017-04-01 13:45] LABS: ARTERIAL BLD GAS O2 SATURATION 70.8 % (90.0-100.0); ARTERIAL BLOOD GAS CARBOXY HB 1.2 %sat (0.0-9.0); ARTERIAL BLOOD GAS HCO3 9.9 mmol/L; ARTERIAL BLOOD GAS MET HB 0.9 %sat (0.0-2.0); ARTERIAL BLOOD GAS PCO2 24.8 mmHg (35.0-45.0); ARTERIAL BLOOD GAS PO2 43.4 mmHg (80.0-100); ARTERIAL BLOOD GAS pH 7.208 (7.350-7.450); ARTERIAL DRAW? NO
[2017-04-01 14:34] LABS: URINE SOURCE CLEAN CATCH
[2017-04-01 14:38] LABS: URINE APPEARANCE SL HAZY; URINE BILIRUBIN NEG (NEG); URINE BLOOD NEG (NEG); URINE COLOR YELLOW; URINE GLUCOSE NORM (NORM); URINE KETONE 3+ (NEG); URINE LEUKOCYTE ESTERASE NEG (NEG); URINE NITRATE NEG (NEG); URINE PROTEIN 1+ (NEG); URINE UROBILINOGEN NORM (NORM)
[2017-04-01 14:39] LABS: BLOOD UREA NITROGEN 8 mg/dL (9-23); BUN/CREATININE RATIO 7.27; CALCIUM SERUM 9.4 mg/dL (8.4-10.2); CARBON DIOXIDE 10 mmol/L (22-31); CHLORIDE 106 mmol/L (100-111); CREATININE SERUM 1.1 mg/dL (0.6-1.4); GLOM FILT RATE Estimated 74.1 mL/min (>60); GLUCOSE FASTING 69 mg/dL (70-110); MAGNESIUM 2.4 mg/dL (1.6-3.0); SALICYLATE <4.0 mg/dL; SODIUM 138 mmol/L (135-145)
[2017-04-01 14:48] LABS: ACETAMINOPHEN <10 ug/mL; ALCOHOL BLOOD <5 mg/dL ([, 0])
[2017-04-01 14:52] LABS: CULTURE INDICATED? YES; URBCS1 AUWI 0-2 /[HPF] (0-2); URINE BACTERIA AUWI 1+ (NEGATIVE); URINE MUCUS PRESENT; URINE SQUAMOUS EPITHELIAL CELL FEW /[HPF]
[2017-04-01 17:29] LABS: CK TOTAL 52 IU/L (36-174)
[2017-04-01 18:36] LABS: CALCIUM SERUM 9.1 mg/dL (8.4-10.2); GLOM FILT RATE Estimated 83.2 mL/min (>60)
[2017-04-01 18:40] LABS: POTASSIUM 2.7 mmol/L (3.5-5.1)
[2017-04-01 21:13] LABS: URINE APPEARANCE CLEAR; URINE COLOR YELLOW; URINE GLUCOSE NORM (NEG); URINE KETONE NEG (NEG); URINE LEUKOCYTE ESTERASE NEG (NEG); URINE NITRATE NEG (NEG); URINE PROTEIN NEG (NEG); URINE SPECIFIC GRAVITY 1.015 (1.003-1.035); URINE UROBILINOGEN NORM (NEG)
[2017-04-01 21:14] LABS: CULTURE INDICATED? NO; URINE BILIRUBIN NEG (NEG); URINE BLOOD NEG (NEG)
[2017-04-01 21:20] LABS: AMPHETAMINE NEG (NEG); BARBITURATES NEG (NEG); BENZODIAZEPINES NEG (NEG); COCAINE NEG (NEG); MARIJUANA NEG (NEG); OPIATES NEG (NEG); TRICYCLIC ANTIDEPRESSANTS NEG (NEG); U METHADONE NEG (NEG)
[2017-04-02 04:04] LABS: ARTERIAL BLD GAS O2 SATURATION 96.3 % (90.0-100.0); ARTERIAL BLOOD GAS CARBOXY HB 1.1 %sat (0.0-9.0); ARTERIAL BLOOD GAS HCO3 18.7 mmol/L; ARTERIAL BLOOD GAS MET HB 1.1 %sat (0.0-2.0); ARTERIAL BLOOD GAS PCO2 32.5 mmHg (35.0-45.0); ARTERIAL BLOOD GAS PO2 96.3 mmHg (80.0-100); ARTERIAL BLOOD GAS pH 7.368 (7.350-7.450)
[2017-04-02 04:05] LABS: ARTERIAL BLOOD GAS ALLEN TEST NORMAL; ARTERIAL BLOOD GAS ART SITE RIGHT RADIAL; ARTERIAL DRAW? YES
[2017-04-02 05:20] LABS: BASOPHIL% 0.3 % (0-2.5); EOSINOPHIL# 0.1 X10e3 (0-0.7); EOSINOPHIL% 1.6 % (0.0-7.0); HEMATOCRIT 35.2 % (38.0-50.0); HEMOGLOBIN 11.6 gm/dL (13.0-16.0); LYMPHOCYTE# 1.4 X10e3 (1.0-3.5); LYMPHOCYTE% 18.2 % (17.0-45.0); MEAN CELL VOLUME 97.2 FL (83-96); MEAN CORPUSCULAR HEMOGLOBIN 32.1 PG (28-34); MEAN PLATELET VOLUME 7.8 FL (6.5-11.5); MONOCYTE# 0.6 X10e3 (0-1.0); MONOCYTE% 7.2 % (3.0-12.0); NEUTROPHIL# 5.7 X10e3 (1.5-7.1); NEUTROPHIL% 72.7 % (40-75); PLATELET COUNT 254 X10e3 (140-420); RED BLOOD COUNT 3.63 X10e (3.90-5.60); RED CELL DISTRIBUTION WIDTH 19.5 % (11.0-15.5); WHITE BLOOD COUNT 7.8 X10e3 (4.0-10.5)
[2017-04-02 06:03] LABS: DIFF IND NO
[2017-04-02 06:12] LABS: ALBUMIN SERUM 3.6 g/dL (3.5-5.0); BILIRUBIN,TOTAL 1.5 mg/dL (0.2-2.0); BUN/CREATININE RATIO 7.77; CREATININE SERUM 0.9 mg/dL (0.6-1.4); GLOM FILT RATE Estimated 94.5 mL/min (>60); MAGNESIUM 2.3 mg/dL (1.6-3.0); POTASSIUM 3.4 mmol/L (3.5-5.1); PROTEIN TOTAL SERUM 6.1 g/dL (6.0-8.3)
[2017-04-02 06:15] LABS: PHOSPHOROUS 0.8 mg/dL (2.5-4.6)
[2017-04-02 15:51] LABS: PHOSPHOROUS 3.1 mg/dL (2.5-4.6)
[2017-04-02 15:54] LABS: POTASSIUM 2.7 mmol/L (3.5-5.1)
[2017-04-03 02:25] LABS: HEMATOCRIT 33.9 % (38.0-50.0); HEMOGLOBIN 11.2 gm/dL (13.0-16.0); MEAN CELL VOLUME 97.3 FL (83-96); MEAN CORPUSCULAR HEMOGLOBIN 32.3 PG (28-34); MEAN CORPUSCULAR HGB CONC 33.2 g/dL (30-36); RED BLOOD COUNT 3.48 X10e (3.90-5.60); RED CELL DISTRIBUTION WIDTH 20.4 % (11.0-15.5); WHITE BLOOD COUNT 6.9 X10e3 (4.0-10.5)
[2017-04-03 02:49] LABS: ALBUMIN SERUM 3.3 g/dL (3.5-5.0); ALKALINE PHOSPHATASE 56 U/L (32-92); ALT (SGPT) 13 U/L (10-40); AST (SGOT) 24 U/L (10-42); BILIRUBIN,TOTAL 0.9 mg/dL (0.2-2.0); BLOOD UREA NITROGEN <5 mg/dL (9-23); BUN/CREATININE RATIO 7.14; CALCIUM SERUM 8.9 mg/dL (8.4-10.2); CARBON DIOXIDE 25 mmol/L (22-31); CHLORIDE 110 mmol/L (100-111); CPK (CREATINE PHOSPHOKINASE) 43 IU/L (36-174); CREATININE SERUM 0.7 mg/dL (0.6-1.4); GLOM FILT RATE Estimated 104.8 mL/min (>60); GLUCOSE FASTING 98 mg/dL (70-110); MAGNESIUM 2.1 mg/dL (1.6-3.0); PHOSPHOROUS 1.8 mg/dL (2.5-4.6); POTASSIUM 3.3 mmol/L (3.5-5.1); SODIUM 143 mmol/L (135-145)
[2017-04-04 07:59] LABS: BLOOD UREA NITROGEN <5 mg/dL (9-23); CALCIUM SERUM 8.7 mg/dL (8.4-10.2); CARBON DIOXIDE 26 mmol/L (22-31); CHLORIDE 112 mmol/L (100-111); CREATININE SERUM 0.5 mg/dL (0.6-1.4); GLOM FILT RATE Estimated 120.3 mL/min (>60); GLUCOSE FASTING 90 mg/dL (70-110); MAGNESIUM 1.9 mg/dL (1.6-3.0); PHOSPHOROUS 2.6 mg/dL (2.5-4.6); POTASSIUM 3.5 mmol/L (3.5-5.1); SODIUM 143 mmol/L (135-145)
[2017-04-05 06:05] LABS: MAGNESIUM 1.9 mg/dL (1.6-3.0); POTASSIUM 3.5 mmol/L (3.5-5.1)
[2017-04-06 05:16] LABS: HEMATOCRIT 31.2 % (38.0-50.0); HEMOGLOBIN 10.4 gm/dL (13.0-16.0); MEAN CELL VOLUME 97.7 FL (83-96); MEAN CORPUSCULAR HEMOGLOBIN 32.4 PG (28-34); MEAN CORPUSCULAR HGB CONC 33.2 g/dL (30-36); MEAN PLATELET VOLUME 8.1 FL (6.5-11.5); RED BLOOD COUNT 3.2 X10e (3.90-5.60); RED CELL DISTRIBUTION WIDTH 20.3 % (11.0-15.5); WHITE BLOOD COUNT 5.2 X10e3 (4.0-10.5)
[2017-04-06 05:59] LABS: CALCIUM SERUM 8.9 mg/dL (8.4-10.2); CARBON DIOXIDE 26 mmol/L (22-31); CHLORIDE 110 mmol/L (100-111); CREATININE SERUM 0.5 mg/dL (0.6-1.4); GLOM FILT RATE Estimated 120.3 mL/min (>60); GLUCOSE FASTING 117 mg/dL (70-110); PHOSPHOROUS 3.3 mg/dL (2.5-4.6); POTASSIUM 3.8 mmol/L (3.5-5.1); SODIUM 141 mmol/L (135-145)
[2017-04-06 06:01] LABS: BLOOD UREA NITROGEN <5 mg/dL (9-23)
[2017-04-07 05:31] LABS: MAGNESIUM 1.7 mg/dL (1.6-3.0); POTASSIUM 3.6 mmol/L (3.5-5.1)
[2017-04-08 07:31] LABS: MAGNESIUM 1.8 mg/dL (1.6-3.0); POTASSIUM 3.4 mmol/L (3.5-5.1)
[2017-04-09] MEDS ORDERED: ARTANE2 M1 PO (12:59)
[2017-04-09] MEDS ORDERED: QUETIAPINE FUM200 MG PO (13:00)
[2017-04-09] MEDS ORDERED: OMEGA 3 1,0001 EACH PO (13:01)
[2017-04-09] MEDS ORDERED: MULTI VITAMIN1 EACH PO (13:01)
[2017-04-09] MEDS ORDERED: KETOROLAC TROMET5 M2 OU (13:03)
[2017-04-09] MEDS ORDERED: THIAMINE HCL100 M2 PO (13:04)
[2017-04-09] MEDS ORDERED: FOLIC ACID1 MG PO (13:04)
== END 2017-04-09 13:26 | disposition home health service (06) | DRG 640 ==
LOC: CED 09:42 → C3A PCU 15:00 → CED 15:43 → C3A PCU 16:00
PROVIDERS: Emergency Medicine; Family Medicine; Internal Medicine; Internal Medicine Nephrology
PROC: 05H333Z Insertion of Infusion Device into Right Innominate Vein, Percutaneous Approach (ICD-10-PCS; principal; 2017-04-01)
DX: E87.2 Acidosis (principal); G92 Toxic encephalopathy; E44.0 Moderate protein-calorie malnutrition; E83.39 Other disorders of phosphorus metabolism; F20.0 Paranoid schizophrenia; K70.30 Alcoholic cirrhosis of liver without ascites; K72.90 Hepatic failure, unspecified without coma; R13.12 Dysphagia, oropharyngeal phase; E83.41 Hypermagnesemia; E87.6 Hypokalemia; F17.200 Nicotine dependence, unspecified, uncomplicated; F10.10 Alcohol abuse, uncomplicated; Z86.19 Personal history of other infectious and parasitic diseases; T73.0XXA Starvation, initial encounter
CPT/HCPCS: 36415; 36600; 70450; 71010; 80048; 80053; 80076; 80178; 80307; 81003; 82010; 82140; 82550; 82553; 82693; 82803; 82947; 83605; 83735; 83930; 84100; 84132; 84443; 84484; 84600; 85025; 85027; 85610; 85730; 87086; 92526; 92610; 93005; 96360; 97110; 97116; 97162; 97166; 97530; 97535; 99285; G0480; G8978-GP; G8979-GP; G8980-GP; G8987-GO; G8988-GO; G8989-GO; G8996-GN; G8997-GN; G8998-GN; J0696; J1451; J2405; J3475; J7060

== ENCOUNTER 2017-05-15 10:28 | Emergency (ER) | payer OTHER ==
[~2017-05-15] VITALS: Ht 177.8 cm; Wt 54.4 kg
[~2017-05-15 10:28] MED LIST changes: +ACULAR LS5 ML OU; +ARTANE2 M1 PO; +KETOROLAC TROMET5 M2 OU; +LEVOTHYROXINE100 MC1 PO; +LITHIUM CARBON300 M2 PO; +MELATIN3 MG PO; +MULTI VITAMIN1 EACH PO; +OLANZAPINE10 MG PO; +OMEGA 3 1,0001 EACH PO; +PRAVACHOL20 MG PO; +QUETIAPINE FUM200 M1 PO; +QUETIAPINE FUM200 MG PO; +SEROQUEL400 MG PO; +SERTRALINE HCL100 M1 PO; +THIAMINE HCL100 M2 PO; +VITAMIN D31000 UNIT PO
== END 2017-05-15 11:55 | disposition left against medical advice (07) ==
LOC: CED 10:28
DX: Z53.21 Procedure and treatment not carried out due to patient leaving prior to being seen by health care provider (principal)